=== PATIENT | female | born 1950 | race Caucasian/White ===

== ENCOUNTER 2024-12-07 13:19 | Observation (INO) | payer MEDICARE ==
[2024-12-07] MEDS ORDERED: DUONEB 0.5-3 MG/3 ml Neb IH ONE (14:23)
[2024-12-07] MEDS ORDERED: Sodium Chloride 3 ML UD NEBULES IH ONE (14:24)
[2024-12-07] MEDS ORDERED: PROVENTIL Solution 2.5 MG/0.5 ML IH ONE (14:24)
--- NOTE | 2024-12-07 14:28 | ERPHSYRPT ---
- History of Present Illness Time Seen by Provider: 12/07/24 13:22 Patient Subjective Stated Complaint: patient has complaints of cough/congestion for the past week, patient has came over from Yvonne Niño's office per [facility] Triage Nursing Assessment: patient presents to ed via wheelchair, patient complains of cough/congestion for the past week, patient has moist/productive cough, patient has green/yellow phlegm, patient has wheezing throughout all lobes, patient denies shortness of breath, patient's oxygen saturation at this time 97% on room air, patient alert and oriented x 4 Physician History: This is a 74-year-old female history of smoking denies history of COPD asthma has been coughing for 3 weeks. Cough is productive. No fever or chills. No chest pain or pressure. No anginal cloven type symptoms. Allergies/Adverse Reactions: amoxicillin [Amoxicillin] Allergy (Verified 12/07/24 13:38) Home Medications: lisinopriL [Zestril] 2.5 mg PO DAILY 12/07/24 [History] Hx Tetanus, Diphtheria Vaccination/Date Given: Yes Hx Influenza Vaccination/Date Given: No Hx Pneumococcal Vaccination/Date Given: No Travel Risk - International Travel Have you traveled outside of the country in past 3 weeks: No - Emerging Infectious Disease Are you exhibiting symptoms associated with any current EIDs: No - Review of Systems All Other Systems: Reviewed and Negative (As per HPI otherwise negative) - Past Medical History Pertinent Past Medical History: Yes Neurological History: No Pertinent History ENT History: Cataracts Cardiac History: No Pertinent History, Hypertension Respiratory History: Bronchitis, Pneumonia Endocrine Medical History: Diabetes Type II Musculoskeletal History: Arthritis GI Medical History: No Pertinent History History: No Pertinent History Psycho-Social History: Panic Disorder Female Reproductive Disorders: No Pertinent History - Past Surgical History Past Surgical History: Yes Neuro Surgical History: No Pertinent History Cardiac: No Pertinent History Respiratory: No Pertinent History Gastrointestinal: Appendectomy, Cholecystectomy Genitourinary: No Pertinent History Musculoskeletal: Other Female Surgical History: Dilation & Curettage, Other Other Surgical History: wrist. oophorectomy - Social History Smoking Status: Current every day smoker Exposure to second hand smoke: Yes Drug Use: none - Social Determinants of Health Will the patient participate in the screening: Yes Do you worry about a steady place to live?: No Do you have any problems with any of the following?: No known problems In the past 12 months,have you had to go without utilities?: No Transportation Issues: No Has anyone in your support network made you feel unsafe?: No Have you or anyone in your house had to go w/o enough food: No - Nursing Vital Signs Nursing Vital Signs: Initial Vital Signs Temperature 97.5 F 12/07/24 13:20 Pulse Rate 88 12/07/24 13:20 Respiratory Rate 20 12/07/24 13:20 Blood Pressure 110/54 12/07/24 13:20 O2 Sat by Pulse Oximetry 96 12/07/24 13:20 Pain Scale Pain Intensity 0 - Physical Exam SpO2: 97 Comments: 12/07/24 14:27 General: Well-nourished well-developed. No apparent distress. Coughing HEENT: Normocephalic atraumatic no obvious facial or neck deformity or injury. Neck: Supple. No deformity or mass noted. CV: RRR NL Perfusion. No edema Resp: No Respiratory distress. Bilateral coarse inspiratory rhonchi with scattered wheezing. Abd: ND SNT MSK: No deformity or TTP Neuro: Alert and [place] x4. No gross focal neurologic changes Psych: No SI, HI or grave disability Ordered Tests: Active Orders 24 hr Category Date Time Status CHEST 1 VIEW (PORTABLE) Stat Exams 12/07/24 14:33 Completed CBC W DIFF Stat Lab 12/07/24 14:50 Completed CMP Stat Lab 12/07/24 14:50 Completed Lactic Acid Stat Lab 12/07/24 14:31 Ordered NT PRO BNPII Stat Lab 12/07/24 14:50 Completed TROPONIN Stat Lab 12/07/24 14:50 Completed Respiratory Therapy Assessment DAILY RT 12/07/24 14:34 Completed Medication Summary Generic Name Dose Route Start Last Admin Trade Name Freq PRN Reason Stop Dose Admin Magnesium Sulfate/Dextrose 100 mls @ 100 mls/hr 12/07/24 14:30 Magnesium 1 Gm / 100 Ml D5w IV 12/07/24 16:29 Q1H TESS Ceftriaxone Sodium 1 gm in 100 mls @ 200 mls/hr 12/08/24 10:00 12/07/24 15:51 Rocephin 1 Gm / 100 Ml Nacl IV 01/07/25 09:59 Infused Q24H10 TESS Infusion Azithromycin 500 mg/ Sodium 250 mls @ 250 mls/hr 12/07/24 14:30 Chloride IV 01/06/25 14:29 ONCALLTOOR TESS Azithromycin 500 mg/ Sodium 250 mls @ 250 mls/hr 12/07/24 15:40 12/07/24 15:47 Chloride IV 12/07/24 16:39 250 ml/hr STAT STA 250 mls/hr Administration Discontinued Medications Generic Name Dose Route Start Last Admin Trade Name Cyrus PRN Reason Stop Dose Admin Albuterol Sulfate 7.5 mg 12/07/24 14:19 12/07/24 14:34 Albuterol Solution 2.5 Mg/0.5 Ml Ud Solution IH 12/07/24 14:20 7.5 mg STAT ONE Administration Albuterol Sulfate Confirm 12/07/24 14:24 Albuterol Solution 2.5 Mg/0.5 Ml Ud Solution Administered 12/07/24 14:25 Dose 7.5 mg IH .STK-MED ONE Albuterol/Ipratropium 3 ml 12/07/24 14:18 12/07/24 14:32 Ipratropium/Albuterol Sulfate 3 Ml Ampul.Neb IH 12/07/24 14:19 3 ml STAT ONE Administration Albuterol/Ipratropium Confirm 12/07/24 14:23 Ipratropium/Albuterol Sulfate 3 Ml Ampul.Neb Administered 12/07/24 14:24 Dose 3 ml IH .STK-MED ONE Azithromycin Confirm 12/07/24 15:46 Azithromycin Inj Administered 12/07/24 15:47 Dose 500 mg IV .STK-MED ONE Methylprednisolone Sodium 0 mg 12/07/24 14:28 12/07/24 15:01 Succinate 125 mg/ Sterile IV 12/07/24 14:29 125 mg Water 2 ml STAT ONE Administration Ceftriaxone Sodium Confirm 12/07/24 15:00 Rocephin 1 Gm / 100 Ml Nacl Administered 12/07/24 15:01 Dose 1 gm in 100 mls @ ud IV .STK-MED ONE Sodium Chloride Confirm 12/07/24 15:46 Sodium Chloride 0.9% 250 Ml Administered 12/07/24 15:47 Dose 250 mls @ ud IV .STK-MED ONE Methylprednisolone Sodium Succinate Confirm 12/07/24 15:00 Methylprednis Sod Succ 125 Mg/2 Ml Vial Administered 12/07/24 15:01 Dose 125 mg .ROUTE .STK-MED ONE Sodium Chloride Confirm 12/07/24 14:24 Sodium Cl For Inhalation 3 Ml Ud Nebule Administered 12/07/24 14:25 Dose 3 ml IH .STK-MED ONE Sterile Water Confirm 12/07/24 15:00 Water For Injection,Sterile 10 Ml Vial Administered 12/07/24 15:01 Dose 10 ml IJ .STK-MED ONE Lab/Rad Data: Laboratory Result Diagrams 12/07/24 14:50 12/07/24 14:50 Laboratory Results 12/07/24 12/07/24 12/07/24 Range/Units 14:50 14:50 14:50 WBC 14.9 H (3.98-10.04) x10^3/uL RBC 4.99 (3.93-5.22) x10^6/uL Hgb 12.5 (11.2-15.7) g/dL Hct 39.2 (34.1-44.9) % MCV 78.6 L (79.4-94.8) fL MCH 25.1 L (25.6-32.2) pg MCHC 31.9 L (32.2-35.5) g/dL RDW 17.2 H (11.7-14.4) % Plt Count 376 H (182-369) x10^3/uL MPV 9.4 (9.4-12.3) fL Gran % 69.6 (34.0-71.1) % Immature Gran % (Auto) 0.5 H (0.001-0.429) % Nucleat RBC Rel Count 0.0 (0.00-0.2) % Eos # (Auto) 0.51 H (0.04-0.36) x10^3/uL Immature Gran # (Auto) 0.08 H (0.001-0.031) x10^3u/L Absolute Lymphs (auto) 2.64 (1.18-3.74) x10^3/uL Absolute Monos (auto) 1.20 H (0.24-0.86) x10^3/uL Absolute Nucleated RBC 0.00 (0.00-0.012) x10^3u/L Lymphocytes % 17.7 L (19.3-51.7) % Monocytes % 8.0 (4.7-12.5) % Eosinophils % 3.4 (0.7-5.8) % Basophils % 0.8 (0.1-1.2) % Absolute Granulocytes 10.39 H (1.56-6.13) x10^3/uL Basophils # 0.12 H (0.01-0.08) x10^3/uL Sodium 138 (135-145) mmol/L Potassium 4.6 (3.5-5.1) mmol/L Chloride 101 (98-107) mmol/L Carbon Dioxide 26 (22-30) mmol/L Anion Gap 15.9 H (5-15) MEQ/L BUN 26 H (7-17) mg/dL Creatinine 1.33 H (0.52-1.04) mg/dL Estimated GFR 41.5 ML/MIN Glucose 119 H (74-106) mg/dL Calcium 9.6 (8.4-10.2) mg/dL Total Bilirubin 0.20 (0.2-1.3) mg/dL AST 24 (14-36) U/L ALT 12 (0-35) U/L Alkaline Phosphatase 88 (38-126) U/L Troponin I < 0.012 (0.000-0.033) ng/mL NT-Pro-B Natriuret Pep 207 (<300) pg/mL Serum Total Protein 6.8 (6.3-8.2) g/dL Albumin 3.8 (3.5-5.0) g/dL - Progress Progress Note: 12/07/24 16:14 Patient has evidence of pneumonia especially elevated white count. COPD exacerbation will admit to medicine service. Stable at this time. - Departure Departure Disposition: In-patient Admission Clinical Impression: Pneumonia, COPD (chronic obstructive pulmonary disease) Condition: Stable Critical Care Time: No Referrals: FELIPA PAUL [Primary Care Provider, [facility]] - Follow up/PCP as directed Instructions: Chronic Obstructive Pulmonary Disease
[2024-12-07] MEDS ORDERED: ZITHROMAX IV*** 500 MG in Sodium Chloride 0.9% 250 ML 250 ML IV SCH (14:30)
[2024-12-07] MEDS: DUONEB 0.5-3 MG/3 ml Neb IH ONE (14:32)
[2024-12-07] MEDS: PROVENTIL Solution 2.5 MG/0.5 ML IH ONE (14:34)
[2024-12-07 14:50] LABS: BASOPHIL % 0.8 % (0.1-1.2); Basophil (Absolute #) 0.12 x10^3/uL (0.01-0.08); Eosinophil (Absolute #) 0.51 x10^3/uL (0.04-0.36); Hematocrit 39.2 % (34.1-44.9); Hemoglobin 12.5 g/dL (11.2-15.7); IMMATURE GRAN # 0.08 x10^3u/L (0.001-0.031); IMMATURE GRAN % 0.5 % (0.001-0.429); Lymphocyte (Absolute #) 2.64 x10^3/uL (1.18-3.74); Mean Corpuscular Hemoglobin 25.1 pg (25.6-32.2); Mean Corpuscular Hgb Concent. 31.9 g/dL (32.2-35.5); Monocyte (Absolute #) 1.20 x10^3/uL (0.24-0.86); NUCLEATED RBC # 0.00 x10^3u/L (0.00-0.012); NUCLEATED RBC % 0.0 % (0.00-0.2); Platelet Count 376 x10^3/uL (182-369); Red Blood Count 4.99 x10^6/uL (3.93-5.22); White Blood Count 14.9 x10^3/uL (3.98-10.04)
--- NOTE | 2024-12-07 14:57 | XRAY ---
Indication: Syncope. Comparison: July 16, 2013 Portable chest again demonstrates mild bilateral lower lung hazy interstitial alveolar opacities without consolidation/large effusion. Heart not enlarged. Bony thorax intact again with mild degenerative changes.
[2024-12-07] MEDS ORDERED: ROCEPHIN 1 GM / 100 ML NaCl 1 GM/100 ML IVPB IV ONE (15:00)
[2024-12-07] MEDS ORDERED: Sterile H2O 10 ml IJ ONE (15:00)
[2024-12-07] MEDS: solu-MEDROL 125 MG, Sterile H2O 10 ml 2 ML IV ONE (15:01)
[2024-12-07] MEDS: ROCEPHIN 1 GM / 100 ML NaCl 1 GM/100 ML IVPB IV SCH (15:02)
[2024-12-07 15:12] LABS: Calcium 9.6 mg/dL (8.4-10.2); Carbon Dioxide 26.0 mmol/L (22-30); Creatinine 1 1.33 mg/dL (0.52-1.04); EST GLOMERULAR FILTRATION RATE 41.5 ML/MIN; Glucose 119.0 mg/dL (74-106); NT PRO BNPII 207.0 pg/mL (<300); Potassium 4.6 mmol/L (3.5-5.1); SGOT/AST 24.0 U/L (14-36); SGPT/ALT 12.0 U/L (0-35); Total Protein 6.8 g/dL (6.3-8.2)
[2024-12-07] MEDS ORDERED: ZITHROMAX IV IV ONE (15:46)
[2024-12-07] MEDS: ZITHROMAX IV*** 500 MG in Sodium Chloride 0.9% 250 ML 250 ML IV STA (15:47)
[2024-12-07 16:19] LABS: INFLUENZA A NEGATIVE (NEGATIVE); INFLUENZA B NEGATIVE (NEGATIVE); RESPIRATORY SYNCTIAL VIRUS NEGATIVE (NEGATIVE); SARS-CoV-2 Xpert Express NEGATIVE (NEGATIVE)
--- NOTE | 2024-12-07 16:48 | PCM.HP ---
History of Present Illness - Chief Complaint Chief Complaint: PNA; COPD Date: 12/07/24 History of Present Illness: is a 74 year old female with past medical history that includes type 2 diabetes mellitus, hypertension, cataracts, panic disorder, and bronchitis. The patient is a 74-year-old female with a significant history of daily tobacco ( 1ppd) use but denies any known history of COPD or asthma. She presents with a three-week history of productive cough, reporting green/yellow sputum and associated wheezing. She denies fever, chills, chest pain, or pressure, and no anginal-type symptoms are noted. On arrival, she was brought to the ED in a wheelchair and was alert and oriented 4. She described her cough as moist and productive with congestion, but she denied shortness of breath. Vital signs were stable with oxygen saturation at 97% on room air. On examination, she had wheezing throughout all lung josue. Chest X-ray demonstrated mild bilateral lower lung hazy interstitial and alveolar opacities without consolidation or large effusions. Given her clinical presentation, smoking history, and imaging findings, she is being admitted and started on treatment for pneumonia. - Review of Systems Constitutional: No Fever, No Chills Eyes: No Symptoms Ears, Nose, & Throat: No Symptoms Respiratory: Cough, Short Of Breath, Wheezing Cardiac: No Chest Pain, No Edema, No Syncope Abdominal/Gastrointestinal: No Abdominal Pain, No Nausea, No Vomiting, No Diarrhea Genitourinary Symptoms: No Dysuria Musculoskeletal: No Back Pain, No Neck Pain Skin: No Rash Neurological: No Dizziness, No Focal Weakness, No Sensory Changes Psychological: No Symptoms Endocrine: No Symptoms Hematologic/Lymphatic: No Symptoms Immunological/Allergic: No Symptoms Medications & Allergies Home Medications: Home Medication List Metformin HCl 500 mg [Glucophage 500 MG] 500 mg PO BID #60 tablet 07/19/13 [Rx Confirmed 12/07/24] lisinopriL [Zestril] 2.5 mg PO DAILY 12/07/24 [History Confirmed 12/07/24] Allergies/Adverse Reactions: Allergies Allergy/AdvReac Type Severity Reaction Status Date / Time amoxicillin [Amoxicillin] Allergy Verified 12/07/24 13:38 - Past Medical History Past Medical History: Yes Neurological History: No Pertinent History ENT History: Cataracts Cardiac History: No Pertinent History, Hypertension Respiratory History: Bronchitis, Pneumonia Endocrine Medical History: Diabetes Type II Musculoskelatal History: Arthritis GI Medical History: No Pertinent History History: No Pertinent History Pyscho-Social History: Panic Disorder Reproductive Disorders: No Pertinent History - Past Surgical History Past Surgical History: Yes Neuro Surgical History: No Pertinent History Cardiac History: No Pertinent History Respiratory Surgery: No Pertinent History GI Surgical History: Appendectomy, Cholecystectomy Genitourinary Surgical Hx: No Pertinent History Musculskeletal Surgical Hx: Other Female Surgical History: Dilation & Curettage, Other Other Surgical History: wrist. oophorectomy - Social History Smoking Status: Current every day smoker How long have you smoked: 46 years Exposure to second hand smoke: Yes Alcohol: None Drug Use: none - Social Determinants of Health Will the patient participate in the screening: Yes Do you worry about a steady place to live?: No Do you have any problems with any of the following?: No known problems In the past 12 months,have you had to go without utilities?: No Have you or anyone in your house had to go without enough: No Transportation Issues: No Has anyone in your support network made you feel unsafe?: No - Physical Exam Vital Signs: Vital Signs - 24 hr Temp Pulse Resp BP BP Pulse Ox 12/07/24 16:14 97 12/07/24 16:00 97 H 18 111/52 94 L 12/07/24 15:30 94 H 26 H 106/49 94 L 12/07/24 15:11 74 15 103/59 96 12/07/24 15:10 82 19 103/59 95 12/07/24 15:03 76 24 95 12/07/24 14:35 76 20 94 L 12/07/24 14:00 68 21 110/54 97 12/07/24 13:20 97.5 F 88 20 110/54 97 General Appearance: no apparent distress, alert Neurologic Exam: alert, oriented x 3, cooperative, normal mood/affect, nml cerebellar function, nml station & gait, sensation nml, No motor deficits Eye Exam: PERRL/EOMI, eyes nml inspection Ears, Nose, Throat Exam: normal ENT inspection, TMs normal, pharynx normal, moist mucous membranes Neck Exam: normal inspection, non-tender, supple, full range of motion Respiratory Exam: diminished breath sounds (BLLL), wheezing, No respiratory distress Cardiovascular Exam: regular rate/rhythm, normal heart sounds, normal peripheral pulses Gastrointestinal/Abdomen Exam: soft, normal bowel sounds, No tenderness, No mass Back Exam: normal inspection, normal range of motion, No CVA tenderness, No vertebral tenderness Extremity Exam: normal inspection, normal range of motion, pelvis stable Skin Exam: normal color, warm, dry, No rash Lymphatic Exam: No adenopathy Results - Labs Lab/Micro Results: Lab Results-Last 24 Hours 12/07/24 12/07/24 12/07/24 Range/Units 14:48 14:50 14:50 WBC 14.9 H (3.98-10.04) x10^3/uL RBC 4.99 (3.93-5.22) x10^6/uL Hgb 12.5 (11.2-15.7) g/dL Hct 39.2 (34.1-44.9) % MCV 78.6 L (79.4-94.8) fL MCH 25.1 L (25.6-32.2) pg MCHC 31.9 L (32.2-35.5) g/dL RDW 17.2 H (11.7-14.4) % Plt Count 376 H (182-369) x10^3/uL MPV 9.4 (9.4-12.3) fL Gran % 69.6 (34.0-71.1) % Immature Gran % (Auto) 0.5 H (0.001-0.429) % Nucleat RBC Rel Count 0.0 (0.00-0.2) % Eos # (Auto) 0.51 H (0.04-0.36) x10^3/uL Immature Gran # (Auto) 0.08 H (0.001-0.031) x10^3u/L Absolute Lymphs (auto) 2.64 (1.18-3.74) x10^3/uL Absolute Monos (auto) 1.20 H (0.24-0.86) x10^3/uL Absolute Nucleated RBC 0.00 (0.00-0.012) x10^3u/L Lymphocytes % 17.7 L (19.3-51.7) % Monocytes % 8.0 (4.7-12.5) % Eosinophils % 3.4 (0.7-5.8) % Basophils % 0.8 (0.1-1.2) % Absolute Granulocytes 10.39 H (1.56-6.13) x10^3/uL Basophils # 0.12 H (0.01-0.08) x10^3/uL Sodium 138 (135-145) mmol/L Potassium 4.6 (3.5-5.1) mmol/L Chloride 101 (98-107) mmol/L Carbon Dioxide 26 (22-30) mmol/L Anion Gap 15.9 H (5-15) MEQ/L BUN 26 H (7-17) mg/dL Creatinine 1.33 H (0.52-1.04) mg/dL Estimated GFR 41.5 ML/MIN Glucose 119 H (74-106) mg/dL Calcium 9.6 (8.4-10.2) mg/dL Total Bilirubin 0.20 (0.2-1.3) mg/dL AST 24 (14-36) U/L ALT 12 (0-35) U/L Alkaline Phosphatase 88 (38-126) U/L Troponin I (0.000-0.033) ng/mL NT-Pro-B Natriuret Pep 207 (<300) pg/mL Serum Total Protein 6.8 (6.3-8.2) g/dL Albumin 3.8 (3.5-5.0) g/dL Influenza Type A Ag NEGATIVE (NEGATIVE) Influenza Type B Ag NEGATIVE (NEGATIVE) RSV (PCR) NEGATIVE (NEGATIVE) SARS-CoV-2 (PCR) NEGATIVE (NEGATIVE) 12/07/24 Range/Units 14:50 WBC (3.98-10.04) x10^3/uL RBC (3.93-5.22) x10^6/uL Hgb (11.2-15.7) g/dL Hct (34.1-44.9) % MCV (79.4-94.8) fL MCH (25.6-32.2) pg MCHC (32.2-35.5) g/dL RDW (11.7-14.4) % Plt Count (182-369) x10^3/uL MPV (9.4-12.3) fL Gran % (34.0-71.1) % Immature Gran % (Auto) (0.001-0.429) % Nucleat RBC Rel Count (0.00-0.2) % Eos # (Auto) (0.04-0.36) x10^3/uL Immature Gran # (Auto) (0.001-0.031) x10^3u/L Absolute Lymphs (auto) (1.18-3.74) x10^3/uL Absolute Monos (auto) (0.24-0.86) x10^3/uL Absolute Nucleated RBC (0.00-0.012) x10^3u/L Lymphocytes % (19.3-51.7) % Monocytes % (4.7-12.5) % Eosinophils % (0.7-5.8) % Basophils % (0.1-1.2) % Absolute Granulocytes (1.56-6.13) x10^3/uL Basophils # (0.01-0.08) x10^3/uL Sodium (135-145) mmol/L Potassium (3.5-5.1) mmol/L Chloride (98-107) mmol/L Carbon Dioxide (22-30) mmol/L Anion Gap (5-15) MEQ/L BUN (7-17) mg/dL Creatinine (0.52-1.04) mg/dL Estimated GFR ML/MIN Glucose (74-106) mg/dL Calcium (8.4-10.2) mg/dL Total Bilirubin (0.2-1.3) mg/dL AST (14-36) U/L ALT (0-35) U/L Alkaline Phosphatase (38-126) U/L Troponin I < 0.012 (0.000-0.033) ng/mL NT-Pro-B Natriuret Pep (<300) pg/mL Serum Total Protein (6.3-8.2) g/dL Albumin (3.5-5.0) g/dL Influenza Type A Ag (NEGATIVE) Influenza Type B Ag (NEGATIVE) RSV (PCR) (NEGATIVE) SARS-CoV-2 (PCR) (NEGATIVE) - Radiology Impressions Radiology Exams & Impressions: Radiology Procedures Category Date Time Status CHEST 1 VIEW (PORTABLE) Stat Exams 12/07/24 14:33 Completed Assessment/Plan (1) Sepsis Current Visit: No Status: Acute Qualifiers: Sepsis type: sepsis due to unspecified organism Severe sepsis acute organ dysfunction type: acute renal failure Severe sepsis shock status: unspecified Assessment & Plan: - 2:2 pneumonia - HR > 90, RR >20, WBC > 12, Lactic acid 2.4 - 2 liter fluid bolus ordered, then NS @ 50ml/hr - Recheck LA in 6 hours - BC x2 ordered - Sputum culture ordered - IV antibiotics, steroids, duonebs - CXR reviewed - CBC, CMP reviewed (2) Pneumonia Current Visit: No Status: Acute Assessment & Plan: - CXR: Portable chest again demonstrates mild bilateral lower lung hazy interstitial alveolar opacities without consolidation/large effusion. Heart not enlarged. Bony thorax intact again with mild degenerative changes. - CBC, CMP reviewed - Started on ceftriaxone, azithromycin, steroids, duonebs in ER- continue - WBC 14.9 - Flu/COVID/RSV negative - RA 97% - Sputum culture pending - Tessalon for cough - BC x2 pending - LA elevated, + sepsis- see plan above Code(s): J18.9 - PNEUMONIA, UNSPECIFIED ORGANISM (3) Acute on chronic renal failure Current Visit: No Status: Acute Assessment & Plan: - Creat 1.33- last yr lab was 1.19 - NS @ 50ml/hr Code(s): N17.9 - ACUTE KIDNEY FAILURE, UNSPECIFIED; N18.9 - CHRONIC KIDNEY DISEASE, UNSPECIFIED (4) Type II diabetes mellitus Current Visit: No Status: Chronic Qualifiers: Diabetes mellitus snf insulin use: without snf use Diabetes mellitus complication status: without complication Qualified Code(s): E11.9 - Type 2 diabetes mellitus without complications Assessment & Plan: - Hold metformin - Start low dose s/s - Accuchecks AC/HS (5) Smoker Current Visit: No Status: Chronic Assessment & Plan: - Advised smoking cessation - Nicotine patch Code(s): F17.200 - NICOTINE DEPENDENCE, UNSPECIFIED, UNCOMPLICATED (6) HTN (hypertension) Current Visit: No Status: Chronic Assessment & Plan: - BP stable - Continue Lisinopril Code(s): I10 - ESSENTIAL (PRIMARY) HYPERTENSION (7) Obesity (BMI 30-39.9) Current Visit: No Status: Chronic Assessment & Plan: - Advised ADA diet and exercise control VTE: Heparin PPI: Protonix Code status: Full Next of KIN: Child, Rene Phelps D/C plan: 1-2 days Plan of care time > 45 minutes Code(s): E66.9 - OBESITY, UNSPECIFIED Telemedicine Encounter - Telemedicine Encounter Telemedicine Encounter: "The entirety of this encounter was performed via Telemedicine" This visit was performed using real-time audio and video connection between my location and thepatients locationwith the assistance of a surrogateat the patients location. Written or verbal consent was obtained from the patient/guardian to perform this visit usingsynchronoustelemedicine technology. Any patient questions regarding the telemedicine interaction were answered.
[2024-12-07] MEDS: Magnesium 1 Gm / 100 Ml D5W*** 100 ML IV SCH (17:25)
[2024-12-07] MEDS: Nicoderm CQ 21 MG TOP SCH (17:35)
[2024-12-07] MEDS: DUONEB 0.5-3 MG/3 ml Neb IH SCH (18:45)
[2024-12-07] MEDS: solu-MEDROL 40 MG, Sterile H2O 10 ml 1 ML IV SCH (21:35)
[2024-12-07] MEDS: Tessalon Perles 100 MG PO PRN (21:35)
[2024-12-07] MEDS: HEPARIN 5000 UNITS/0.5 ML (HIGH RISK MED) SQ SCH (21:36)
[2024-12-07] MEDS: HUMALOG SQ PRN (21:37)
[2024-12-08 05:04] LABS: Hematocrit 35.6 % (34.1-44.9); Hemoglobin 11.1 g/dL (11.2-15.7); Mean Corpuscular Hemoglobin 23.6 pg (25.6-32.2); Mean Corpuscular Hgb Concent. 31.2 g/dL (32.2-35.5); Platelet Count 397 x10^3/uL (182-369); Red Blood Count 4.70 x10^6/uL (3.93-5.22); White Blood Count 10.0 x10^3/uL (3.98-10.04)
[2024-12-08 05:32] LABS: Calcium 8.7 mg/dL (8.4-10.2); Carbon Dioxide 22 mmol/L (22-30); Creatinine 1 1.07 mg/dL (0.52-1.04); EST GLOMERULAR FILTRATION RATE 53.8 ML/MIN; Glucose 207 mg/dL (74-106); Potassium 4.1 mmol/L (3.5-5.1); SGOT/AST 21 U/L (14-36); SGPT/ALT 10 U/L (0-35); Total Protein 6.8 g/dL (6.3-8.2)
--- NOTE | 2024-12-08 09:12 | PCM.DS ---
Discharge Summary Date of Admission: 12/07/24 16:33 Date of Discharge: 12/08/24 Admitting Physician: TREY ROD MD Primary Care Provider: FELIPA PAUL Allergies Allergies amoxicillin [Amoxicillin] Allergy (Verified 12/07/24 13:38) Hospital Summary - Hospital Course Hospital Course: is a 74 year old female with past medical history that includes type 2 diabetes mellitus, hypertension, cataracts, panic disorder, and bronchitis. The patient is a 74-year-old female with a significant history of daily tobacco ( 1ppd) use but denies any known history of COPD or asthma. She presented on 12/07/24 with a three-week history of productive cough, reporting green/yellow sputum and associated wheezing. She denies fever, chills, chest pain, or pressure, and no anginal-type symptoms are noted. On arrival, she was brought to the ED in a wheelchair and was alert and oriented 4. She described her cough as moist and productive with congestion, but she denied shortness of breath. Vital signs were stable with oxygen saturation at 97% on room air. On examination, she had wheezing throughout all lung josue. Chest X-ray demonstrated mild bilateral lower lung hazy interstitial and alveolar opacities without consolidation or large effusions. Given her clinical presentation, smoking history, and imaging findings, she is being admitted and started on treatment for pneumonia. 12/08 today pt is sitting up in bed. She is RA 95%. required overnight oxygen. Overnight pulse ox for home ordered. Lung sounds are clear but she continues to have a cough. Will d/c with antibiotics, cough medication, and steroids. kidney function at baseline. WBC 10.0 today. Sputum and BC x2 pending. - Vitals & Intake/Output Vital Signs: Vital Signs Temperature 97.9 F 12/08/24 07:50 Pulse Rate 64 12/08/24 07:50 Respiratory Rate 17 12/08/24 07:50 Blood Pressure 129/62 12/08/24 07:50 O2 Sat by Pulse Oximetry 95 12/08/24 07:50 Intake & Output: Intake & Output 12/05/24 12/06/24 12/07/24 12/08/24 11:59 11:59 11:59 11:59 Intake Total 2192 Output Total 150 Balance 2042 Weight 89.5 kg - Lab Result Diagrams: 12/08/24 04:20 12/08/24 04:20 Lab Results-Last 24 Hrs: Lab Results-Last 24 Hours 12/07/24 12/07/24 12/07/24 Range/Units 14:40 14:48 14:50 WBC 14.9 H (3.98-10.04) x10^3/uL RBC 4.99 (3.93-5.22) x10^6/uL Hgb 12.5 (11.2-15.7) g/dL Hct 39.2 (34.1-44.9) % MCV 78.6 L (79.4-94.8) fL MCH 25.1 L (25.6-32.2) pg MCHC 31.9 L (32.2-35.5) g/dL RDW 17.2 H (11.7-14.4) % Plt Count 376 H (182-369) x10^3/uL MPV 9.4 (9.4-12.3) fL Gran % 69.6 (34.0-71.1) % Immature Gran % (Auto) 0.5 H (0.001-0.429) % Nucleat RBC Rel Count 0.0 (0.00-0.2) % Eos # (Auto) 0.51 H (0.04-0.36) x10^3/uL Immature Gran # (Auto) 0.08 H (0.001-0.031) x10^3u/L Absolute Lymphs (auto) 2.64 (1.18-3.74) x10^3/uL Absolute Monos (auto) 1.20 H (0.24-0.86) x10^3/uL Absolute Nucleated RBC 0.00 (0.00-0.012) x10^3u/L Lymphocytes % 17.7 L (19.3-51.7) % Monocytes % 8.0 (4.7-12.5) % Eosinophils % 3.4 (0.7-5.8) % Basophils % 0.8 (0.1-1.2) % Absolute Granulocytes 10.39 H (1.56-6.13) x10^3/uL Basophils # 0.12 H (0.01-0.08) x10^3/uL Sodium (135-145) mmol/L Potassium (3.5-5.1) mmol/L Chloride (98-107) mmol/L Carbon Dioxide (22-30) mmol/L Anion Gap (5-15) MEQ/L BUN (7-17) mg/dL Creatinine (0.52-1.04) mg/dL Estimated GFR ML/MIN Glucose (74-106) mg/dL POC Glucometer (74 to 106) mg/dL Hemoglobin A1c (4.5-6.0) % Lactic Acid 2.4 H (0.4-2.0) Calcium (8.4-10.2) mg/dL Total Bilirubin (0.2-1.3) mg/dL AST (14-36) U/L ALT (0-35) U/L Alkaline Phosphatase (38-126) U/L Troponin I (0.000-0.033) ng/mL NT-Pro-B Natriuret Pep (<300) pg/mL Serum Total Protein (6.3-8.2) g/dL Albumin (3.5-5.0) g/dL Influenza Type A Ag NEGATIVE (NEGATIVE) Influenza Type B Ag NEGATIVE (NEGATIVE) RSV (PCR) NEGATIVE (NEGATIVE) SARS-CoV-2 (PCR) NEGATIVE (NEGATIVE) 12/07/24 12/07/24 12/07/24 Range/Units 14:50 14:50 14:50 WBC (3.98-10.04) x10^3/uL RBC (3.93-5.22) x10^6/uL Hgb (11.2-15.7) g/dL Hct (34.1-44.9) % MCV (79.4-94.8) fL MCH (25.6-32.2) pg MCHC (32.2-35.5) g/dL RDW (11.7-14.4) % Plt Count (182-369) x10^3/uL MPV (9.4-12.3) fL Gran % (34.0-71.1) % Immature Gran % (Auto) (0.001-0.429) % Nucleat RBC Rel Count (0.00-0.2) % Eos # (Auto) (0.04-0.36) x10^3/uL Immature Gran # (Auto) (0.001-0.031) x10^3u/L Absolute Lymphs (auto) (1.18-3.74) x10^3/uL Absolute Monos (auto) (0.24-0.86) x10^3/uL Absolute Nucleated RBC (0.00-0.012) x10^3u/L Lymphocytes % (19.3-51.7) % Monocytes % (4.7-12.5) % Eosinophils % (0.7-5.8) % Basophils % (0.1-1.2) % Absolute Granulocytes (1.56-6.13) x10^3/uL Basophils # (0.01-0.08) x10^3/uL Sodium 138 (135-145) mmol/L Potassium 4.6 (3.5-5.1) mmol/L Chloride 101 (98-107) mmol/L Carbon Dioxide 26 (22-30) mmol/L Anion Gap 15.9 H (5-15) MEQ/L BUN 26 H (7-17) mg/dL Creatinine 1.33 H (0.52-1.04) mg/dL Estimated GFR 41.5 ML/MIN Glucose 119 H (74-106) mg/dL POC Glucometer (74 to 106) mg/dL Hemoglobin A1c 6.40 H (4.5-6.0) % Lactic Acid (0.4-2.0) Calcium 9.6 (8.4-10.2) mg/dL Total Bilirubin 0.20 (0.2-1.3) mg/dL AST 24 (14-36) U/L ALT 12 (0-35) U/L Alkaline Phosphatase 88 (38-126) U/L Troponin I < 0.012 (0.000-0.033) ng/mL NT-Pro-B Natriuret Pep 207 (<300) pg/mL Serum Total Protein 6.8 (6.3-8.2) g/dL Albumin 3.8 (3.5-5.0) g/dL Influenza Type A Ag (NEGATIVE) Influenza Type B Ag (NEGATIVE) RSV (PCR) (NEGATIVE) SARS-CoV-2 (PCR) (NEGATIVE) 12/07/24 12/07/24 12/07/24 Range/Units 16:56 21:15 21:23 WBC (3.98-10.04) x10^3/uL RBC (3.93-5.22) x10^6/uL Hgb (11.2-15.7) g/dL Hct (34.1-44.9) % MCV (79.4-94.8) fL MCH (25.6-32.2) pg MCHC (32.2-35.5) g/dL RDW (11.7-14.4) % Plt Count (182-369) x10^3/uL MPV (9.4-12.3) fL Gran % (34.0-71.1) % Immature Gran % (Auto) (0.001-0.429) % Nucleat RBC Rel Count (0.00-0.2) % Eos # (Auto) (0.04-0.36) x10^3/uL Immature Gran # (Auto) (0.001-0.031) x10^3u/L Absolute Lymphs (auto) (1.18-3.74) x10^3/uL Absolute Monos (auto) (0.24-0.86) x10^3/uL Absolute Nucleated RBC (0.00-0.012) x10^3u/L Lymphocytes % (19.3-51.7) % Monocytes % (4.7-12.5) % Eosinophils % (0.7-5.8) % Basophils % (0.1-1.2) % Absolute Granulocytes (1.56-6.13) x10^3/uL Basophils # (0.01-0.08) x10^3/uL Sodium (135-145) mmol/L Potassium (3.5-5.1) mmol/L Chloride (98-107) mmol/L Carbon Dioxide (22-30) mmol/L Anion Gap (5-15) MEQ/L BUN (7-17) mg/dL Creatinine (0.52-1.04) mg/dL Estimated GFR ML/MIN Glucose (74-106) mg/dL POC Glucometer 467 H 477 H (74 to 106) mg/dL Hemoglobin A1c (4.5-6.0) % Lactic Acid 1.0 (0.4-2.0) Calcium (8.4-10.2) mg/dL Total Bilirubin (0.2-1.3) mg/dL AST (14-36) U/L ALT (0-35) U/L Alkaline Phosphatase (38-126) U/L Troponin I (0.000-0.033) ng/mL NT-Pro-B Natriuret Pep (<300) pg/mL Serum Total Protein (6.3-8.2) g/dL Albumin (3.5-5.0) g/dL Influenza Type A Ag (NEGATIVE) Influenza Type B Ag (NEGATIVE) RSV (PCR) (NEGATIVE) SARS-CoV-2 (PCR) (NEGATIVE) 12/07/24 12/08/24 12/08/24 Range/Units 22:21 00:19 04:17 WBC (3.98-10.04) x10^3/uL RBC (3.93-5.22) x10^6/uL Hgb (11.2-15.7) g/dL Hct (34.1-44.9) % MCV (79.4-94.8) fL MCH (25.6-32.2) pg MCHC (32.2-35.5) g/dL RDW (11.7-14.4) % Plt Count (182-369) x10^3/uL MPV (9.4-12.3) fL Gran % (34.0-71.1) % Immature Gran % (Auto) (0.001-0.429) % Nucleat RBC Rel Count (0.00-0.2) % Eos # (Auto) (0.04-0.36) x10^3/uL Immature Gran # (Auto) (0.001-0.031) x10^3u/L Absolute Lymphs (auto) (1.18-3.74) x10^3/uL Absolute Monos (auto) (0.24-0.86) x10^3/uL Absolute Nucleated RBC (0.00-0.012) x10^3u/L Lymphocytes % (19.3-51.7) % Monocytes % (4.7-12.5) % Eosinophils % (0.7-5.8) % Basophils % (0.1-1.2) % Absolute Granulocytes (1.56-6.13) x10^3/uL Basophils # (0.01-0.08) x10^3/uL Sodium (135-145) mmol/L Potassium (3.5-5.1) mmol/L Chloride (98-107) mmol/L Carbon Dioxide (22-30) mmol/L Anion Gap (5-15) MEQ/L BUN (7-17) mg/dL Creatinine (0.52-1.04) mg/dL Estimated GFR ML/MIN Glucose (74-106) mg/dL POC Glucometer 449 H 280 H 203 H (74 to 106) mg/dL Hemoglobin A1c (4.5-6.0) % Lactic Acid (0.4-2.0) Calcium (8.4-10.2) mg/dL Total Bilirubin (0.2-1.3) mg/dL AST (14-36) U/L ALT (0-35) U/L Alkaline Phosphatase (38-126) U/L Troponin I (0.000-0.033) ng/mL NT-Pro-B Natriuret Pep (<300) pg/mL Serum Total Protein (6.3-8.2) g/dL Albumin (3.5-5.0) g/dL Influenza Type A Ag (NEGATIVE) Influenza Type B Ag (NEGATIVE) RSV (PCR) (NEGATIVE) SARS-CoV-2 (PCR) (NEGATIVE) 12/08/24 12/08/24 12/08/24 Range/Units 04:20 04:20 07:13 WBC 10.0 (3.98-10.04) x10^3/uL RBC 4.70 (3.93-5.22) x10^6/uL Hgb 11.1 L (11.2-15.7) g/dL Hct 35.6 (34.1-44.9) % MCV 75.7 L (79.4-94.8) fL MCH 23.6 L (25.6-32.2) pg MCHC 31.2 L (32.2-35.5) g/dL RDW 17.2 H (11.7-14.4) % Plt Count 397 H (182-369) x10^3/uL MPV 9.2 L (9.4-12.3) fL Gran % (34.0-71.1) % Immature Gran % (Auto) (0.001-0.429) % Nucleat RBC Rel Count (0.00-0.2) % Eos # (Auto) (0.04-0.36) x10^3/uL Immature Gran # (Auto) (0.001-0.031) x10^3u/L Absolute Lymphs (auto) (1.18-3.74) x10^3/uL Absolute Monos (auto) (0.24-0.86) x10^3/uL Absolute Nucleated RBC (0.00-0.012) x10^3u/L Lymphocytes % (19.3-51.7) % Monocytes % (4.7-12.5) % Eosinophils % (0.7-5.8) % Basophils % (0.1-1.2) % Absolute Granulocytes (1.56-6.13) x10^3/uL Basophils # (0.01-0.08) x10^3/uL Sodium 135 (135-145) mmol/L Potassium 4.1 (3.5-5.1) mmol/L Chloride 102 (98-107) mmol/L Carbon Dioxide 22 (22-30) mmol/L Anion Gap 14.5 (5-15) MEQ/L BUN 27 H (7-17) mg/dL Creatinine 1.07 H (0.52-1.04) mg/dL Estimated GFR 53.8 ML/MIN Glucose 207 H (74-106) mg/dL POC Glucometer 212 H (74 to 106) mg/dL Hemoglobin A1c (4.5-6.0) % Lactic Acid (0.4-2.0) Calcium 8.7 (8.4-10.2) mg/dL Total Bilirubin < 0.10 L (0.2-1.3) mg/dL AST 21 (14-36) U/L ALT 10 (0-35) U/L Alkaline Phosphatase 87 (38-126) U/L Troponin I (0.000-0.033) ng/mL NT-Pro-B Natriuret Pep (<300) pg/mL Serum Total Protein 6.8 (6.3-8.2) g/dL Albumin 3.6 (3.5-5.0) g/dL Influenza Type A Ag (NEGATIVE) Influenza Type B Ag (NEGATIVE) RSV (PCR) (NEGATIVE) SARS-CoV-2 (PCR) (NEGATIVE) Micro Results-Entire Visit: Accuchecks Date 12/08/24 Date 12/08/24 Date 12/08/24 Date 12/07/24 Date 12/07/24 Date 12/07/24 Time 07:50 Time 04:17 Time 00:19 Time 22:21 Time 21:23 Time 21:15 - Radiology Exams Ordered Rad Exams-Entire Visit: Radiology Procedures Category Date Time Status CHEST 1 VIEW (PORTABLE) Stat Exams 12/07/24 14:33 Completed - Procedures and Test Procedures and Tests throughout Hospitalization: Therapy Orders & Screens 12/07/24 14:34 Respiratory Therapy Assessment DAILY Comment: 12/07/24 16:54 Respiratory Therapy Assessment DAILY Comment: Diagnosis: PNA; COPD 12/07/24 17:07 Smoking Cessation Education ONCE Comment: Diagnosis: PNA; COPD Smoking Status: Current every day smoker How long have you smoked: 46 years Have you smoked in the past 12 months: Yes Approximately how many cigarettes per day: 10 Do you dip or chew tobacco: No 12/07/24 19:00 Oxygen Nasal Cannula 2 lpm Comment: Diagnosis: PNA; COPD Discharge Exam General Appearance: no apparent distress, alert Neurologic Exam: alert, oriented x 3, cooperative, normal mood/affect, nml cerebellar function, sensation nml, No motor deficits Eye Exam: PERRL, EOMI, eyes nml inspection Ears, Nose, Throat Exam: normal ENT inspection, pharynx normal, moist mucous membranes Neck Exam: normal inspection, non-tender, supple, full range of motion Respiratory Exam: normal breath sounds, lungs clear, wheezing (RUL- occasionally), No respiratory distress Cardiovascular Exam: regular rate/rhythm, normal heart sounds Gastrointestinal/Abdomen Exam: soft, No tenderness, No mass Pelvic Exam: deferred Rectal Exam: deferred Back Exam: normal inspection, normal range of motion, No CVA tenderness, No vertebral tenderness Extremity Exam: normal inspection, normal range of motion Skin Exam: normal color, warm, dry Final Diagnosis/Problem List - Final Discharge Diagnosis/Problem (1) Sepsis Current Visit: No Status: Acute (2) Pneumonia Current Visit: No Status: Acute Code(s): J18.9 - PNEUMONIA, UNSPECIFIED ORGANISM (3) Acute on chronic renal failure Current Visit: No Status: Acute Code(s): N17.9 - ACUTE KIDNEY FAILURE, UNSPECIFIED; N18.9 - CHRONIC KIDNEY DISEASE, UNSPECIFIED (4) Type II diabetes mellitus Current Visit: No Status: Chronic (5) Smoker Current Visit: No Status: Chronic Code(s): F17.200 - NICOTINE DEPENDENCE, UNSPECIFIED, UNCOMPLICATED (6) HTN (hypertension) Current Visit: No Status: Chronic Code(s): I10 - ESSENTIAL (PRIMARY) HYPERTENSION (7) Obesity (BMI 30-39.9) Current Visit: No Status: Chronic Assessment & Plan: (1) Sepsis Current Visit: No Status: Acute Qualifiers: Sepsis type: sepsis due to unspecified organism Severe sepsis acute organ dysfunction type: acute renal failure Severe sepsis shock status: unspecified Assessment & Plan: - 2:2 pneumonia - HR > 90, RR >20, WBC > 12, Lactic acid 2.4 @ 1440 - Repeat LA 1.0 at 1656- IVF boluses not required - NS @ 50ml/hr - BC x2 ordered - Sputum culture ordered - IV antibiotics, steroids, duonebs - CXR reviewed - CBC, CMP reviewed 12/08 - CBC, CMP reviewed - Will continue to follow BC x2 and Sputum culture OP (2) Pneumonia Current Visit: No Status: Acute Assessment & Plan: - CXR: Portable chest again demonstrates mild bilateral lower lung hazy interstitial alveolar opacities without consolidation/large effusion. Heart not enlarged. Bony thorax intact again with mild degenerative changes. - CBC, CMP reviewed - Started on ceftriaxone, azithromycin, steroids, duonebs in ER- continue - WBC 14.9 - Flu/COVID/RSV negative - RA 97% - Sputum culture pending - Tessalon for cough - BC x2 pending - LA elevated, + sepsis- see plan above 12/08 - WBC 10.0 - RT eval for home O2 - Overnight pulse ox at home as pt required O2 last night - CBC, CMP reviewed - Will continue to follow BC x2 and Sputum culture OP - Will d/c with antibiotics, steroids, tessalon, and nebs. - CM to order neb machine Code(s): J18.9 - PNEUMONIA, UNSPECIFIED ORGANISM (3) Acute on chronic renal failure Current Visit: No Status: Acute Assessment & Plan: - Creat 1.33- last yr lab was 1.19 - NS @ 50ml/hr 12/08 - Creat 1.07- at baseline Code(s): N17.9 - ACUTE KIDNEY FAILURE, UNSPECIFIED; N18.9 - CHRONIC KIDNEY DISEASE, UNSPECIFIED (4) Type II diabetes mellitus Current Visit: No Status: Chronic Qualifiers: Diabetes mellitus ad terminal makeup operator insulin use: without shelter use Diabetes mellitus complication status: without complication Qualified Code(s): E11.9 - Type 2 diabetes mellitus without complications Assessment & Plan: - Hold metformin - Start low dose s/s - Accuchecks AC/HS - A1C 6.40- controlled (5) Smoker Current Visit: No Status: Chronic Assessment & Plan: - Advised smoking cessation - Nicotine patch Code(s): F17.200 - NICOTINE DEPENDENCE, UNSPECIFIED, UNCOMPLICATED (6) HTN (hypertension) Current Visit: No Status: Chronic Assessment & Plan: - BP stable - Continue Lisinopril Code(s): I10 - ESSENTIAL (PRIMARY) HYPERTENSION (7) Obesity (BMI 30-39.9) Current Visit: No Status: Chronic Assessment & Plan: - Advised ADA diet and exercise control Code(s): E66.9 - OBESITY, UNSPECIFIED (8) Thrombocytosis Current Visit: Yes Status: Acute Assessment & Plan: - PLT 397- f/u OP with PCP - 2:2 pneumonia D/C plan of care time: > 40 minutes D/C meds: prednisone, tessalon, levaquin, duonebs, albuterol inhaler - Discharge Discharge Date: 12/08/24 Disposition: Home, Self-Care Condition: Stable Prescriptions: Continue Metformin HCl 500 mg [Glucophage 500 MG] 500 mg PO BID #60 tablet lisinopriL [Zestril] 2.5 mg PO DAILY Outpatient Orders: Overnight Pulse Ox Time Frame: 1 Day, Facility: [facility], Location: RESPIRATORY THERAPY Instructions: Pneumonia in adults, Quitting smoking - ED discharge instructions Follow up with: FELIPA PAUL [Primary Care Provider, [facility]]
[2024-12-08] MEDS: Protonix 20MG Tablet PO SCH (10:18)
[2024-12-08] MEDS: Zestril 5 MG PO SCH (10:19)
[2024-12-08] MEDS: ROCEPHIN 1 GM / 100 ML NaCl 1 GM/100 ML IVPB IV SCH (10:20)
[2024-12-08] MEDS: ZITHROMAX IV*** 500 MG in Sodium Chloride 0.9% 250 ML 250 ML IV SCH (11:09)
[2024-12-08] MEDS: Mucinex 600MG ER Tabs PO SCH (11:09)
[2024-12-08] MEDS: HYDROCODONE-CHLORPHEN ER SUSP PO PRN (11:41)
--- NOTE | 2024-12-08 15:06 | XRAY ---
Indication: Crackles. Comparison: 1 day earlier. Portable chest demonstrates slight worsening mild bibasilar interstitial alveolar opacities with new tiny right effusion. Remaining heart and upper lungs unremarkable.
--- NOTE | 2024-12-08 15:50 | PCM.NOTE ---
Date and Time: 12/08/24 1548 Subjective Assessment: is a 74 year old female with past medical history that includes type 2 diabetes mellitus, hypertension, cataracts, panic disorder, and bronchitis. The patient is a 74-year-old female with a significant history of daily tobacco ( 1ppd) use but denies any known history of COPD or asthma. She presented on 12/07/24 with a three-week history of productive cough, reporting green/yellow sputum and associated wheezing. She denies fever, chills, chest pain, or pressure, and no anginal-type symptoms are noted. On arrival, she was brought to the ED in a wheelchair and was alert and oriented 4. She described her cough as moist and productive with congestion, but she denied shortness of breath. Vital signs were stable with oxygen saturation at 97% on room air. On examination, she had wheezing throughout all lung josue. Chest X-ray demonstrated mild bilateral lower lung hazy interstitial and alveolar opacities without consolidation or large effusions. Given her clinical presentation, smoking history, and imaging findings, she is being admitted and started on treatment for pneumonia. 12/08 tod ay pt is sitting up in bed. She is RA 95%. required overnight oxygen. She qualified for home RT per RT. Lung sounds are clear but she continues to have a cough. WBC 10.0 today. Sputum and BC x2 pending. Pt was doing well this AM and wanted to d/c home. She developed bronchospasms several times today. Tessalon changed to tussinex and Advair added since she is a smoker. Pt wanted to stay another night. Repeat CXR ordered for further eval of sxs. - Review of Systems Constitutional: No Fever, No Chills Eyes: No Symptoms Ears, Nose, & Throat: No Symptoms Respiratory: Cough, Wheezing, No Short Of Breath Cardiac: No Chest Pain, No Edema, No Syncope Abdominal/Gastrointestinal: No Abdominal Pain, No Nausea, No Vomiting, No Diarrhea Genitourinary Symptoms: No Dysuria Musculoskeletal: No Back Pain, No Neck Pain Skin: No Rash Neurological: No Dizziness, No Focal Weakness, No Sensory Changes Psychological: No Symptoms Endocrine: No Symptoms Hematologic/Lymphatic: No Symptoms Immunological/Allergic: No Symptoms Objective Exam General Appearance: no apparent distress, alert, obese Neurologic Exam: alert, oriented x 3, cooperative, normal mood/affect, nml cerebellar function, sensation nml, No motor deficits Skin Exam: normal color, warm, dry Eye Exam: PERRL, EOMI, eyes nml inspection Ears, Nose, Throat Exam: normal ENT inspection, pharynx normal, moist mucous membranes Neck Exam: normal inspection, non-tender, supple, full range of motion Respiratory Exam: wheezing, No respiratory distress Cardiovascular Exam: regular rate/rhythm, normal heart sounds Gastrointestinal/Abdomen Exam: soft, No tenderness, No mass Extremity Exam: normal inspection, normal range of motion Back Exam: normal inspection, normal range of motion, No CVA tenderness, No vertebral tenderness Pelvic Exam: deferred Rectal Exam: deferred Objective Data Vital Signs: Vital Signs - 24 hr Temp Pulse Resp BP BP Pulse Ox 12/08/24 14:43 72 18 96 12/08/24 12:00 97.8 F 96 H 18 115/61 91 L 12/08/24 09:12 70 18 96 12/08/24 07:50 97.9 F 64 17 129/62 95 12/08/24 07:17 62 16 95 12/08/24 04:00 98.5 F 75 18 131/62 95 12/08/24 00:00 98.0 F 64 20 106/55 94 L 12/07/24 20:00 98.6 F 99 H 21 99/51 95 12/07/24 18:45 98 H 20 89 L 12/07/24 17:11 76 16 95 12/07/24 16:39 98.3 F 82 22 112/53 96 12/07/24 16:14 97 12/07/24 16:00 97 H 18 111/52 94 L Pain Assessment - Last Documented Pain Intensity 0 Intake and Output: Intake & Output 12/06/24 12/07/24 12/08/24 12/09/24 11:59 11:59 11:59 11:59 Intake Total 2192 240 Output Total 150 Balance 2042 240 Weight 89.5 kg Lab Results: Lab Results-Last 24 Hours 12/07/24 12/07/24 12/07/24 Range/Units 14:40 14:48 14:50 WBC (3.98-10.04) x10^3/uL RBC (3.93-5.22) x10^6/uL Hgb (11.2-15.7) g/dL Hct (34.1-44.9) % MCV (79.4-94.8) fL MCH (25.6-32.2) pg MCHC (32.2-35.5) g/dL RDW (11.7-14.4) % Plt Count (182-369) x10^3/uL MPV (9.4-12.3) fL Sodium (135-145) mmol/L Potassium (3.5-5.1) mmol/L Chloride (98-107) mmol/L Carbon Dioxide (22-30) mmol/L Anion Gap (5-15) MEQ/L BUN (7-17) mg/dL Creatinine (0.52-1.04) mg/dL Estimated GFR ML/MIN Glucose (74-106) mg/dL POC Glucometer (74 to 106) mg/dL Hemoglobin A1c 6.40 H (4.5-6.0) % Lactic Acid 2.4 H (0.4-2.0) Calcium (8.4-10.2) mg/dL Total Bilirubin (0.2-1.3) mg/dL AST (14-36) U/L ALT (0-35) U/L Alkaline Phosphatase (38-126) U/L Serum Total Protein (6.3-8.2) g/dL Albumin (3.5-5.0) g/dL Influenza Type A Ag NEGATIVE (NEGATIVE) Influenza Type B Ag NEGATIVE (NEGATIVE) RSV (PCR) NEGATIVE (NEGATIVE) SARS-CoV-2 (PCR) NEGATIVE (NEGATIVE) 12/07/24 12/07/24 12/07/24 Range/Units 16:56 21:15 21:23 WBC (3.98-10.04) x10^3/uL RBC (3.93-5.22) x10^6/uL Hgb (11.2-15.7) g/dL Hct (34.1-44.9) % MCV (79.4-94.8) fL MCH (25.6-32.2) pg MCHC (32.2-35.5) g/dL RDW (11.7-14.4) % Plt Count (182-369) x10^3/uL MPV (9.4-12.3) fL Sodium (135-145) mmol/L Potassium (3.5-5.1) mmol/L Chloride (98-107) mmol/L Carbon Dioxide (22-30) mmol/L Anion Gap (5-15) MEQ/L BUN (7-17) mg/dL Creatinine (0.52-1.04) mg/dL Estimated GFR ML/MIN Glucose (74-106) mg/dL POC Glucometer 467 H 477 H (74 to 106) mg/dL Hemoglobin A1c (4.5-6.0) % Lactic Acid 1.0 (0.4-2.0) Calcium (8.4-10.2) mg/dL Total Bilirubin (0.2-1.3) mg/dL AST (14-36) U/L ALT (0-35) U/L Alkaline Phosphatase (38-126) U/L Serum Total Protein (6.3-8.2) g/dL Albumin (3.5-5.0) g/dL Influenza Type A Ag (NEGATIVE) Influenza Type B Ag (NEGATIVE) RSV (PCR) (NEGATIVE) SARS-CoV-2 (PCR) (NEGATIVE) 12/07/24 12/08/24 12/08/24 Range/Units 22:21 00:19 04:17 WBC (3.98-10.04) x10^3/uL RBC (3.93-5.22) x10^6/uL Hgb (11.2-15.7) g/dL Hct (34.1-44.9) % MCV (79.4-94.8) fL MCH (25.6-32.2) pg MCHC (32.2-35.5) g/dL RDW (11.7-14.4) % Plt Count (182-369) x10^3/uL MPV (9.4-12.3) fL Sodium (135-145) mmol/L Potassium (3.5-5.1) mmol/L Chloride (98-107) mmol/L Carbon Dioxide (22-30) mmol/L Anion Gap (5-15) MEQ/L BUN (7-17) mg/dL Creatinine (0.52-1.04) mg/dL Estimated GFR ML/MIN Glucose (74-106) mg/dL POC Glucometer 449 H 280 H 203 H (74 to 106) mg/dL Hemoglobin A1c (4.5-6.0) % Lactic Acid (0.4-2.0) Calcium (8.4-10.2) mg/dL Total Bilirubin (0.2-1.3) mg/dL AST (14-36) U/L ALT (0-35) U/L Alkaline Phosphatase (38-126) U/L Serum Total Protein (6.3-8.2) g/dL Albumin (3.5-5.0) g/dL Influenza Type A Ag (NEGATIVE) Influenza Type B Ag (NEGATIVE) RSV (PCR) (NEGATIVE) SARS-CoV-2 (PCR) (NEGATIVE) 12/08/24 12/08/24 12/08/24 Range/Units 04:20 04:20 07:13 WBC 10.0 (3.98-10.04) x10^3/uL RBC 4.70 (3.93-5.22) x10^6/uL Hgb 11.1 L (11.2-15.7) g/dL Hct 35.6 (34.1-44.9) % MCV 75.7 L (79.4-94.8) fL MCH 23.6 L (25.6-32.2) pg MCHC 31.2 L (32.2-35.5) g/dL RDW 17.2 H (11.7-14.4) % Plt Count 397 H (182-369) x10^3/uL MPV 9.2 L (9.4-12.3) fL Sodium 135 (135-145) mmol/L Potassium 4.1 (3.5-5.1) mmol/L Chloride 102 (98-107) mmol/L Carbon Dioxide 22 (22-30) mmol/L Anion Gap 14.5 (5-15) MEQ/L BUN 27 H (7-17) mg/dL Creatinine 1.07 H (0.52-1.04) mg/dL Estimated GFR 53.8 ML/MIN Glucose 207 H (74-106) mg/dL POC Glucometer 212 H (74 to 106) mg/dL Hemoglobin A1c (4.5-6.0) % Lactic Acid (0.4-2.0) Calcium 8.7 (8.4-10.2) mg/dL Total Bilirubin < 0.10 L (0.2-1.3) mg/dL AST 21 (14-36) U/L ALT 10 (0-35) U/L Alkaline Phosphatase 87 (38-126) U/L Serum Total Protein 6.8 (6.3-8.2) g/dL Albumin 3.6 (3.5-5.0) g/dL Influenza Type A Ag (NEGATIVE) Influenza Type B Ag (NEGATIVE) RSV (PCR) (NEGATIVE) SARS-CoV-2 (PCR) (NEGATIVE) 12/08/24 Range/Units 12:10 WBC (3.98-10.04) x10^3/uL RBC (3.93-5.22) x10^6/uL Hgb (11.2-15.7) g/dL Hct (34.1-44.9) % MCV (79.4-94.8) fL MCH (25.6-32.2) pg MCHC (32.2-35.5) g/dL RDW (11.7-14.4) % Plt Count (182-369) x10^3/uL MPV (9.4-12.3) fL Sodium (135-145) mmol/L Potassium (3.5-5.1) mmol/L Chloride (98-107) mmol/L Carbon Dioxide (22-30) mmol/L Anion Gap (5-15) MEQ/L BUN (7-17) mg/dL Creatinine (0.52-1.04) mg/dL Estimated GFR ML/MIN Glucose (74-106) mg/dL POC Glucometer 256 H (74 to 106) mg/dL Hemoglobin A1c (4.5-6.0) % Lactic Acid (0.4-2.0) Calcium (8.4-10.2) mg/dL Total Bilirubin (0.2-1.3) mg/dL AST (14-36) U/L ALT (0-35) U/L Alkaline Phosphatase (38-126) U/L Serum Total Protein (6.3-8.2) g/dL Albumin (3.5-5.0) g/dL Influenza Type A Ag (NEGATIVE) Influenza Type B Ag (NEGATIVE) RSV (PCR) (NEGATIVE) SARS-CoV-2 (PCR) (NEGATIVE) Radiology Exams: Radiology Procedures Category Date Time Status CHEST 1 VIEW (PORTABLE) Stat Exams 12/07/24 14:33 Completed CHEST 1 VIEW (PORTABLE) Urgent Exams 12/08/24 14:42 Completed Medications: Medications Generic Name Dose Route Start Last Admin Trade Name Freq PRN Reason Stop Dose Admin Albuterol/Ipratropium 3 ml 12/07/24 19:00 12/08/24 14:40 Ipratropium/Albuterol Sulfate 3 Ml Ampul.Neb IH 01/06/25 18:59 3 ml QIDRT TESS Administration Chlorphenir/Hydrocodone Polistirex 5 ml 12/08/24 11:29 12/08/24 11:41 Hydrocodone/Chlorphen P-Stirex 1 Ml Zenaida.Er.12h PO 01/07/25 11:28 5 ml [id number] PRN Administration COUGH Methylprednisolone Sodium 0 mg 12/07/24 22:00 12/08/24 10:22 Succinate 40 mg/ Sterile Water IV 01/06/25 21:59 40 mg 1 ml Q12HT TESS Administration Guaifenesin 600 mg 12/08/24 11:00 12/08/24 11:09 Guaifenesin 600 Mg Tablet Er PO 01/07/25 10:59 600 mg BID TESS Administration Heparin Sodium (Beef Lung) 5,000 unit 12/07/24 22:00 12/08/24 10:22 Heparin 5000 Units/0.5 Ml 5,000 Unit/0.5 Ml Syr SQ 01/06/25 21:59 5,000 unit BID TESS Administration Ceftriaxone Sodium 1 gm in 100 mls @ 200 mls/hr 12/08/24 10:00 12/08/24 10:20 Rocephin 1 Gm / 100 Ml Nacl IV 01/07/25 09:59 200 mls/hr Q24H10 TESS Administration Azithromycin 500 mg/ Sodium 250 mls @ 250 mls/hr 12/08/24 10:00 12/08/24 11:09 Chloride IV 01/07/25 09:59 250 mls/hr DAILY TESS Administration Insulin Human Lispro 0 unit 12/07/24 16:45 12/08/24 10:16 Insulin Lispro 1 Unit SQ 01/06/25 16:44 2 unit UD PRN Administration HYPERGLYCEMIA Lisinopril 2.5 mg 12/08/24 10:00 12/08/24 10:19 Lisinopril 5 Mg Tablet PO 01/07/25 09:59 2.5 mg DAILY TESS Administration Nicotine 21 mg 12/07/24 17:30 12/08/24 10:21 Nicotine 21 Mg/Patch Patch TOP 01/06/25 17:29 21 mg Q24H10 TESS Administration Pantoprazole Sodium 20 mg 12/08/24 10:00 12/08/24 10:18 Pantoprazole 20 Mg Tab PO 01/07/25 09:59 20 mg DAILY TESS Administration Fluticasone/Salmeterol 2 puff 12/08/24 19:00 Fluticasone/Salmeterol 115/21 60 Puff Aer.W.Adap IH 01/07/25 18:59 BIDRT TESS Discontinued Medications Generic Name Dose Route Start Last Admin Trade Name Freq PRN Reason Stop Dose Admin Albuterol Sulfate 7.5 mg 12/07/24 14:19 12/07/24 14:34 Albuterol Solution 2.5 Mg/0.5 Ml Ud Solution IH 12/07/24 14:20 7.5 mg STAT ONE Administration Albuterol Sulfate Confirm 12/07/24 14:24 Albuterol Solution 2.5 Mg/0.5 Ml Ud Solution Administered 12/07/24 14:25 Dose 7.5 mg IH .STK-MED ONE Albuterol/Ipratropium 3 ml 12/07/24 14:18 12/07/24 14:32 Ipratropium/Albuterol Sulfate 3 Ml Ampul.Neb IH 12/07/24 14:19 3 ml STAT ONE Administration Albuterol/Ipratropium Confirm 12/07/24 14:23 Ipratropium/Albuterol Sulfate 3 Ml Ampul.Neb Administered 12/07/24 14:24 Dose 3 ml IH .STK-MED ONE Azithromycin Confirm 12/07/24 15:46 Azithromycin Inj Administered 12/07/24 15:47 Dose 500 mg IV .STK-MED ONE Benzonatate 100 mg 12/07/24 17:21 12/08/24 10:19 Benzonatate 100 Mg Capsule PO 01/06/25 17:20 100 mg TID PRN PRN Administration COUGH Methylprednisolone Sodium 0 mg 12/07/24 14:28 12/07/24 15:01 Succinate 125 mg/ Sterile IV 12/07/24 14:29 125 mg Water 2 ml STAT ONE Administration Magnesium Sulfate/Dextrose 100 mls @ 100 mls/hr 12/07/24 14:30 12/07/24 18:14 Magnesium 1 Gm / 100 Ml D5w IV 12/07/24 16:29 100 mls/hr Q1H TESS Administration Ceftriaxone Sodium 1 gm in 100 mls @ 200 mls/hr 12/08/24 10:00 12/07/24 15:51 Rocephin 1 Gm / 100 Ml Nacl IV 01/07/25 09:59 Infused Q24H10 TESS Infusion Ceftriaxone Sodium Confirm 12/07/24 15:00 Rocephin 1 Gm / 100 Ml Nacl Administered 12/07/24 15:01 Dose 1 gm in 100 mls @ ud IV .STK-MED ONE Azithromycin 500 mg/ Sodium 250 mls @ 250 mls/hr 12/07/24 15:40 12/07/24 15:47 Chloride IV 12/07/24 16:39 250 ml/hr STAT STA 250 mls/hr Administration Sodium Chloride Confirm 12/07/24 15:46 Sodium Chloride 0.9% 250 Ml Administered 12/07/24 15:47 Dose 250 mls @ ud IV .STK-MED ONE Sodium Chloride 1,000 mls @ 50 mls/hr 12/07/24 17:00 12/07/24 17:37 Sodium Chloride 0.9% 1000 Ml IV 01/06/25 16:59 50 mls/hr .Q20H TESS Administration Sodium Chloride 1,000 mls @ 999 mls/hr 12/07/24 17:01 12/07/24 20:02 Sodium Chloride 0.9% 1000 Ml IV 12/07/24 18:01 Not Given .Q1H1M STA Sodium Chloride 1,000 mls @ 999 mls/hr 12/07/24 17:02 12/07/24 20:02 Sodium Chloride 0.9% 1000 Ml IV 12/07/24 18:02 Not Given .Q1H1M STA Methylprednisolone Sodium Succinate Confirm 12/07/24 15:00 Methylprednis Sod Succ 125 Mg/2 Ml Vial Administered 12/07/24 15:01 Dose 125 mg .ROUTE .STK-MED ONE Sodium Chloride Confirm 12/07/24 14:24 Sodium Cl For Inhalation 3 Ml Ud Nebule Administered 12/07/24 14:25 Dose 3 ml IH .STK-MED ONE Sterile Water Confirm 12/07/24 15:00 Water For Injection,Sterile 10 Ml Vial Administered 12/07/24 15:01 Dose 10 ml IJ .STK-MED ONE Multi-Disciplinary Progress Notes: Multi-Disciplinary Progress Notes 12/08/24 12:50 (created 12/08/24 14:58) Case Management Note by Alyssa Barajas BRITTNEY KELLEY, PICKED UP PATIENTS MEDS AND DELIVERED TO HER ROOM IN PREP FOR HER DC HOME. Initialized on 12/08/24 14:58 - END OF NOTE 12/08/24 11:38 Case Management Note by Anupama Holguin PATIENT NEEDING OXYGEN AND NEBULIZER MACHINE. S/W PATIENT REGARDING DME PROVIDERS. SHE WOULD LIKE TO USE [facility]. ORDERS SUBMITTED TO [facility] FOR NEB MACHINE AND 2LNC 21/10. SHE WILL NEED SENT HOME WITH [facility] PORTABLE FROM [facility], THEN CALL [facility] WHEN SHE LEAVES [facility] TO [place] FOR DELIVERY OF HOME CONCENTRATOR. PRIMARY RN NOTIFIED. DELIVERY INSTRUCTIONS PLACED IN DC INSTRUCTIONS. PRIMARY RN GIVEN PULSE OX TO SEND HOME WITH PATIENT AT TIME OF DC Initialized on 12/08/24 11:38 - END OF NOTE 12/07/24 19:09 Respiratory Note by Isamar Tucker Patient is having episode of coughing and is complaining of SOB. Neb tx given and pt placed on 2L nasal cannula as her SpO2 just after coughing spell was 89%- 90%. Initialized on 12/07/24 19:09 - END OF NOTE Assessment/Plan (1) Sepsis Current Visit: No Status: Acute Qualifiers: Sepsis type: sepsis due to unspecified organism Severe sepsis acute organ dysfunction type: acute renal failure Severe sepsis shock status: unspecified (2) Pneumonia Current Visit: No Status: Acute Code(s): J18.9 - PNEUMONIA, UNSPECIFIED ORGANISM (3) Acute on chronic renal failure Current Visit: No Status: Acute Code(s): N17.9 - ACUTE KIDNEY FAILURE, UNSPECIFIED; N18.9 - CHRONIC KIDNEY DISEASE, UNSPECIFIED (4) Type II diabetes mellitus Current Visit: No Status: Chronic Qualifiers: Diabetes mellitus [facility] insulin use: without bed bug exterminator use Diabetes mellitus complication status: without complication Qualified Code(s): E11.9 - Type 2 diabetes mellitus without complications (5) Smoker Current Visit: No Status: Chronic Code(s): F17.200 - NICOTINE DEPENDENCE, UNSPECIFIED, UNCOMPLICATED (6) HTN (hypertension) Current Visit: No Status: Chronic Code(s): I10 - ESSENTIAL (PRIMARY) HYPERTENSION (7) Obesity (BMI 30-39.9) Current Visit: No Status: Chronic Code(s): E66.9 - OBESITY, UNSPECIFIED (8) Thrombocytosis Current Visit: Yes Status: Acute Assessment & Plan: 1) Sepsis Current Visit: No Status: Acute Qualifiers: Sepsis type: sepsis due to unspecified organism Severe sepsis acute organ dysfunction type: acute renal failure Severe sepsis shock status: unspecified Assessment & Plan: - 2:2 pneumonia - HR > 90, RR >20, WBC > 12, Lactic acid 2.4 @ 1440 - Repeat LA 1.0 at 1656- IVF boluses not required - NS @ 50ml/hr - BC x2 ordered - Sputum culture ordered - IV antibiotics, steroids, duonebs - CXR reviewed - CBC, CMP reviewed 12/08 - CBC, CMP reviewed - Will continue to follow BC x2 and Sputum culture OP (2) Pneumonia Current Visit: No Status: Acute Assessment & Plan: - CXR: Portable chest again demonstrates mild bilateral lower lung hazy interstitial alveolar opacities without consolidation/large effusion. Heart not enlarged. Bony thorax intact again with mild degenerative changes. - CBC, CMP reviewed - Started on ceftriaxone, azithromycin, steroids, duonebs in ER- continue - WBC 14.9 - Flu/COVID/RSV negative - RA 97% - Sputum culture pending - Tessalon for cough - BC x2 pending - LA elevated, + sepsis- see plan above 12/08 - WBC 10.0 - RT eval for home O2- qualified and CM set up - CBC, CMP reviewed - Will continue to follow BC x2 and Sputum culture OP - Will d/c with antibiotics, steroids, tessalon, and nebs.- orders sent in when ready for D/C - CM to order neb machine - Several bronchospasms today, Advair added - Tessalon changed to tussinex per request of nurse - Mucinex added. - Repeat CXR: Portable chest demonstrates slight worsening mild bibasilar interstitial alveolar opacities with new tiny right effusion. Remaining heart and upper lungs unremarkable - 2NC 96% Code(s): J18.9 - PNEUMONIA, UNSPECIFIED ORGANISM (3) Acute on chronic renal failure Current Visit: No Status: Acute Assessment & Plan: - Creat 1.33- last yr lab was 1.19 - NS @ 50ml/hr 12/08 - Creat 1.07- at baseline Code(s): N17.9 - ACUTE KIDNEY FAILURE, UNSPECIFIED; N18.9 - CHRONIC KIDNEY DISEASE, UNSPECIFIED (4) Type II diabetes mellitus Current Visit: No Status: Chronic Qualifiers: Diabetes mellitus [facility] insulin use: without [facility] use Diabetes mellitus complication status: without complication Qualified Code(s): E11.9 - Type 2 diabetes mellitus without complications Assessment & Plan: - Hold metformin - Start low dose s/s - Accuchecks AC/HS - A1C 6.40- controlled (5) Smoker Current Visit: No Status: Chronic Assessment & Plan: - Advised smoking cessation - Nicotine patch Code(s): F17.200 - NICOTINE DEPENDENCE, UNSPECIFIED, UNCOMPLICATED (6) HTN (hypertension) Current Visit: No Status: Chronic Assessment & Plan: - BP stable - Continue Lisinopril Code(s): I10 - ESSENTIAL (PRIMARY) HYPERTENSION (7) Obesity (BMI 30-39.9) Current Visit: No Status: Chronic Assessment & Plan: - Advised ADA diet and exercise control Code(s): E66.9 - OBESITY, UNSPECIFIED (8) Thrombocytosis Current Visit: Yes Status: Acute Assessment & Plan: - PLT 397- f/u OP with PCP - 2:2 pneumonia VTE:Heparin PPI: Protonix Next of KIN: [place] D/Ras plan: tomorrow Code status: Full Plan of care time > 50 minutes
[2024-12-08] MEDS: HUMALOG SQ PRN (16:44)
[2024-12-08] MEDS: Advair Hfa 115/21 Common canister IH SCH (18:34)
[2024-12-09 05:19] LABS: Hematocrit 33.8 % (34.1-44.9); Hemoglobin 10.5 g/dL (11.2-15.7); Mean Corpuscular Hemoglobin 24.1 pg (25.6-32.2); Mean Corpuscular Hgb Concent. 31.1 g/dL (32.2-35.5); Platelet Count 361 x10^3/uL (182-369); Red Blood Count 4.35 x10^6/uL (3.93-5.22); White Blood Count 18.3 x10^3/uL (3.98-10.04)
[2024-12-09 07:02] LABS: Calcium 8.5 mg/dL (8.4-10.2); Carbon Dioxide 22 mmol/L (22-30); Creatinine 1 0.86 mg/dL (0.52-1.04); EST GLOMERULAR FILTRATION RATE 70.0 ML/MIN; Glucose 152 mg/dL (74-106); Potassium 4.3 mmol/L (3.5-5.1); SGOT/AST 25 U/L (14-36); SGPT/ALT 15 U/L (0-35); Total Protein 6.3 g/dL (6.3-8.2)
[2024-12-09 11:43] VITALS: BP 124/60; PULSE 56; RESP 16; TEMP 98; O2SAT 96
--- NOTE | 2024-12-09 12:10 | PCM.DS ---
Discharge Summary Date of Admission: 12/07/24 16:33 Date of Discharge: 12/09/24 Admitting Physician: TREY ROD MD Primary Care Provider: FELIPA PAUL Allergies Allergies amoxicillin [Amoxicillin] Allergy (Verified 12/07/24 13:38) Hospital Summary - Hospital Course Hospital Course: is a 74-year-old female with a history of type 2 diabetes, hypertension, cataracts, panic disorder, bronchitis, and daily tobacco use who was admitted on 12/07/24 with a three-week history of productive cough with green/yellow sputum and associated wheezing. She denied fever, chills, chest pain, or anginal-type symptoms. On presentation, she was alert and oriented, with stable vital signs and oxygen saturation of 97% on room air. Examination revealed diffuse wheezing, and chest X-ray showed mild bilateral lower lung interstitial and alveolar opacities without consolidation or effusion. She was started on treatment for pneumonia. Over the course of hospitalization, she required intermittent oxygen support, qualified for home oxygen per respiratory therapy, and continued to experience a persistent cough with occasional bronchospasms. Tessalon was transitioned to Tussionex, and inhaled therapy was adjusted, though Advair was discontinued as the patient did not find it helpful. Repeat chest X-ray was obtained for ongoing symptoms. On 12/09/24, she reported feeling unchanged compared to the prior day but remained concerned about her persistent cough. The provider explained that she will continue receiving the same medications at home that she has been given in the hospital and that she may also use [id number] cough remedies if needed. Her WBC balta to 18.3, likely secondary to steroid therapy, while DIMITRIS resolved. She remained hemodynamically stable with oxygen saturations at 99% on 2 L NC, primarily needed at night, and was ambulating in her room without difficulty. At discharge, she was provided with a nebulizer and prescribed nebulized medications, with home oxygen arranged. Sputum and blood cultures remain pending and will be followed outpatient. She was discharged home with instructions to continue antibiotics, use prescribed inhaled therapies and nebulizer, maintain home oxygen as needed, and follow up with her primary care provider for monitoring and ongoing management. - Vitals & Intake/Output Vital Signs: Vital Signs Temperature 98 F 12/09/24 11:41 Pulse Rate 56 L 12/09/24 11:41 Respiratory Rate 16 12/09/24 11:41 Blood Pressure 124/60 12/09/24 11:41 O2 Sat by Pulse Oximetry 96 12/09/24 11:41 Intake & Output: Intake & Output 12/07/24 12/08/24 12/09/24 12/10/24 11:59 11:59 11:59 11:59 Intake Total 2192 2180 Output Total 150 950 Balance 2042 1230 Weight 89.5 kg - Lab Result Diagrams: 12/09/24 04:20 12/09/24 05:00 Lab Results-Last 24 Hrs: Lab Results-Last 24 Hours 12/08/24 12/08/24 12/08/24 Range/Units 12:10 16:17 22:34 WBC (3.98-10.04) x10^3/uL RBC (3.93-5.22) x10^6/uL Hgb (11.2-15.7) g/dL Hct (34.1-44.9) % MCV (79.4-94.8) fL MCH (25.6-32.2) pg MCHC (32.2-35.5) g/dL RDW (11.7-14.4) % Plt Count (182-369) x10^3/uL MPV (9.4-12.3) fL Sodium (135-145) mmol/L Potassium (3.5-5.1) mmol/L Chloride (98-107) mmol/L Carbon Dioxide (22-30) mmol/L Anion Gap (5-15) MEQ/L BUN (7-17) mg/dL Creatinine (0.52-1.04) mg/dL Estimated GFR ML/MIN Glucose (74-106) mg/dL POC Glucometer 256 H 417 H 252 H (74 to 106) mg/dL Calcium (8.4-10.2) mg/dL Total Bilirubin (0.2-1.3) mg/dL AST (14-36) U/L ALT (0-35) U/L Alkaline Phosphatase (38-126) U/L Serum Total Protein (6.3-8.2) g/dL Albumin (3.5-5.0) g/dL 12/09/24 12/09/24 12/09/24 Range/Units 04:20 05:00 07:18 WBC 18.3 H (3.98-10.04) x10^3/uL RBC 4.35 (3.93-5.22) x10^6/uL Hgb 10.5 L (11.2-15.7) g/dL Hct 33.8 L (34.1-44.9) % MCV 77.7 L (79.4-94.8) fL MCH 24.1 L (25.6-32.2) pg MCHC 31.1 L (32.2-35.5) g/dL RDW 17.3 H (11.7-14.4) % Plt Count 361 (182-369) x10^3/uL MPV 9.2 L (9.4-12.3) fL Sodium 138 (135-145) mmol/L Potassium 4.3 (3.5-5.1) mmol/L Chloride 106 (98-107) mmol/L Carbon Dioxide 22 (22-30) mmol/L Anion Gap 14.1 (5-15) MEQ/L BUN 28 H (7-17) mg/dL Creatinine 0.86 (0.52-1.04) mg/dL Estimated GFR 70.0 ML/MIN Glucose 152 H (74-106) mg/dL POC Glucometer 165 H (74 to 106) mg/dL Calcium 8.5 (8.4-10.2) mg/dL Total Bilirubin < 0.10 L (0.2-1.3) mg/dL AST 25 (14-36) U/L ALT 15 (0-35) U/L Alkaline Phosphatase 86 (38-126) U/L Serum Total Protein 6.3 (6.3-8.2) g/dL Albumin 3.3 L (3.5-5.0) g/dL 12/09/24 Range/Units 11:14 WBC (3.98-10.04) x10^3/uL RBC (3.93-5.22) x10^6/uL Hgb (11.2-15.7) g/dL Hct (34.1-44.9) % MCV (79.4-94.8) fL MCH (25.6-32.2) pg MCHC (32.2-35.5) g/dL RDW (11.7-14.4) % Plt Count (182-369) x10^3/uL MPV (9.4-12.3) fL Sodium (135-145) mmol/L Potassium (3.5-5.1) mmol/L Chloride (98-107) mmol/L Carbon Dioxide (22-30) mmol/L Anion Gap (5-15) MEQ/L BUN (7-17) mg/dL Creatinine (0.52-1.04) mg/dL Estimated GFR ML/MIN Glucose (74-106) mg/dL POC Glucometer 146 H (74 to 106) mg/dL Calcium (8.4-10.2) mg/dL Total Bilirubin (0.2-1.3) mg/dL AST (14-36) U/L ALT (0-35) U/L Alkaline Phosphatase (38-126) U/L Serum Total Protein (6.3-8.2) g/dL Albumin (3.5-5.0) g/dL Micro Results-Entire Visit: Microbiology 12/07/24 17:58 Blood Culture - Preliminary Blood 12/07/24 17:52 Blood Culture - Preliminary Blood 12/08/24 05:40 Gram Stain - Final Sputum - Expectorant Accuchecks Date 12/09/24 Date 12/09/24 Time 11:41 Time 07:29 - Radiology Exams Ordered Rad Exams-Entire Visit: Radiology Procedures Category Date Time Status CHEST 1 VIEW (PORTABLE) Stat Exams 12/07/24 14:33 Completed CHEST 1 VIEW (PORTABLE) Urgent Exams 12/08/24 14:42 Completed - Procedures and Test Procedures and Tests throughout Hospitalization: Therapy Orders & Screens 12/07/24 14:34 Respiratory Therapy Assessment DAILY Comment: 12/07/24 16:54 Respiratory Therapy Assessment DAILY Comment: Diagnosis: PNA; COPD 12/07/24 17:07 Smoking Cessation Education ONCE Comment: Diagnosis: PNA; COPD Smoking Status: Current every day smoker How long have you smoked: 46 years Have you smoked in the past 12 months: Yes Approximately how many cigarettes per day: 10 Do you dip or chew tobacco: No 12/07/24 19:00 Oxygen Nasal Cannula 2 lpm Comment: Diagnosis: PNA; COPD 12/08/24 09:12 RT Miscellaneous Order ROUTINE Comment: Physician Instructions: Reason For Exam: eval for home O2 Diagnosis: PNA; COPD 12/08/24 14:38 Respiratory MDI BID Comment: Diagnosis: PNA; COPD 12/08/24 18:37 Flutter Therapy UD Comment: Diagnosis: PNA; COPD Discharge Exam General Appearance: no apparent distress, alert, obese Neurologic Exam: alert, oriented x 3, cooperative, normal mood/affect, nml cerebellar function, sensation nml, No motor deficits Eye Exam: PERRL, EOMI, eyes nml inspection Ears, Nose, Throat Exam: normal ENT inspection, pharynx normal, moist mucous membranes Neck Exam: normal inspection, non-tender, supple, full range of motion Respiratory Exam: wheezing, No respiratory distress Cardiovascular Exam: regular rate/rhythm, normal heart sounds Gastrointestinal/Abdomen Exam: soft, No tenderness, No mass Pelvic Exam: deferred Rectal Exam: deferred Back Exam: normal inspection, normal range of motion, No CVA tenderness, No vertebral tenderness Extremity Exam: normal inspection, normal range of motion Skin Exam: normal color, warm, dry Final Diagnosis/Problem List - Final Discharge Diagnosis/Problem (1) Sepsis Current Visit: No Status: Acute (2) Pneumonia Current Visit: No Status: Acute Code(s): J18.9 - PNEUMONIA, UNSPECIFIED ORGANISM (3) Acute on chronic renal failure Current Visit: No Status: Acute Code(s): N17.9 - ACUTE KIDNEY FAILURE, UNSPECIFIED; N18.9 - CHRONIC KIDNEY DISEASE, UNSPECIFIED (4) Type II diabetes mellitus Current Visit: No Status: Chronic (5) Smoker Current Visit: No Status: Chronic Code(s): F17.200 - NICOTINE DEPENDENCE, UNSPECIFIED, UNCOMPLICATED (6) HTN (hypertension) Current Visit: No Status: Chronic Code(s): I10 - ESSENTIAL (PRIMARY) HYPERTENSION (7) Obesity (BMI 30-39.9) Current Visit: No Status: Chronic Code(s): E66.9 - OBESITY, UNSPECIFIED (8) Thrombocytosis Current Visit: Yes Status: Acute Assessment & Plan: 1) Sepsis Current Visit: No Status: Acute Qualifiers: Sepsis type: sepsis due to unspecified organism Severe sepsis acute organ dysfunction type: acute renal failure Severe sepsis shock status: unspecified Assessment & Plan: - 2:2 pneumonia - HR > 90, RR >20, WBC > 12, Lactic acid 2.4 @ 1440 - Repeat LA 1.0 at 1656- IVF boluses not required - NS @ 50ml/hr - BC x2 ordered - Sputum culture ordered - IV antibiotics, steroids, duonebs - CXR reviewed - CBC, CMP reviewed 12/08 - CBC, CMP reviewed - Will continue to follow BC x2 and Sputum culture OP (2) Pneumonia Current Visit: No Status: Acute Assessment & Plan: - CXR: Portable chest again demonstrates mild bilateral lower lung hazy interstitial alveolar opacities without consolidation/large effusion. Heart not enlarged. Bony thorax intact again with mild degenerative changes. - CBC, CMP reviewed - Started on ceftriaxone, azithromycin, steroids, duonebs in ER- continue - WBC 14.9 - Flu/COVID/RSV negative - RA 97% - Sputum culture pending - Tessalon for cough - BC x2 pending - LA elevated, + sepsis- see plan above 12/08 - WBC 10.0 - RT eval for home O2- qualified and CM set up - CBC, CMP reviewed - Will continue to follow BC x2 and Sputum culture OP - Will d/c with antibiotics, steroids, tessalon, and nebs.- orders sent in when ready for D/C - CM to order neb machine - Several bronchospasms today, Advair added - Tessalon changed to tussinex per request of nurse - Mucinex added. - Repeat CXR: Portable chest demonstrates slight worsening mild bibasilar interstitial alveolar opacities with new tiny right effusion. Remaining heart and upper lungs unremarkable - 2NC 96% 12/09 - 2lNC 99% - CBC, CMP reviewed - WBC 18.3, likely 2:2 steroids - Continue OP antibiotics, steroids, duonebs, tessalon Code(s): J18.9 - PNEUMONIA, UNSPECIFIED ORGANISM (3) Acute on chronic renal failure Current Visit: No Status: Acute Assessment & Plan: - Creat 1.33- last yr lab was 1.19 - NS @ 50ml/hr 12/08 - Creat 1.07- at baseline 12/09 - resolved Code(s): N17.9 - ACUTE KIDNEY FAILURE, UNSPECIFIED; N18.9 - CHRONIC KIDNEY DISEASE, UNSPECIFIED (4) Type II diabetes mellitus Current Visit: No Status: Chronic Qualifiers: Diabetes mellitus mcc insulin use: without terminal system operator use Diabetes mellitus complication status: without complication Qualified Code(s): E11.9 - Type 2 diabetes mellitus without complications Assessment & Plan: - Hold metformin - Start low dose s/s - Accuchecks AC/HS - A1C 6.40- controlled (5) Smoker Current Visit: No Status: Chronic Assessment & Plan: - Advised smoking cessation - Nicotine patch 12/09 - Advised not to smoke with oxygen Code(s): F17.200 - NICOTINE DEPENDENCE, UNSPECIFIED, UNCOMPLICATED (6) HTN (hypertension) Current Visit: No Status: Chronic Assessment & Plan: - BP stable - Continue Lisinopril Code(s): I10 - ESSENTIAL (PRIMARY) HYPERTENSION (7) Obesity (BMI 30-39.9) Current Visit: No Status: Chronic Assessment & Plan: - Advised ADA diet and exercise control Code(s): E66.9 - OBESITY, UNSPECIFIED (8) Thrombocytosis Current Visit: Yes Status: Acute Assessment & Plan: - PLT 397- f/u OP with PCP - 2:2 pneumonia D/C plan of care time > 45 minutes D/C meds: antibiotics, steroids, duonebs, tessalon - Discharge Disposition: Home, Self-Care Condition: Stable Prescriptions: New Benzonatate 100 mg PO TIDPRN PRN 10 Days #30 cap PRN Reason: Cough Prednisone 20 mg [Deltasone 20 mg] 20 mg PO BID 5 Days #10 tablet levoFLOXacin [Levofloxacin] 750 mg PO DAILY 5 Days #5 tablet Albuterol/Ipratropium 3ml Neb* [DUONEB 0.5-3 MG/3 ml Neb] 3 ml IH QIDPRN PRN 10 Days #40 misc PRN Reason: Shortness Of Breath/Wheezing Albuterol Sulfate [Albuterol Sulfate Hfa] 8.5 gm IH Q6HPRN PRN 30 Days #1 inh PRN Reason: Cough Continue Metformin HCl 500 mg [Glucophage 500 MG] 500 mg PO BID #60 tablet lisinopriL [Zestril] 2.5 mg PO DAILY Instructions: Pneumonia in adults, Oxygen therapy at home, Quitting smoking - ED discharge instructions Additional Instructions: WEAR 2L/NC AT ALL TIMES, CALL [facility] AT [phone] WHEN YOU LEAVE [facility] SO THEY CAN MEET YOU AT YOUR HOME TO DELIVER YOUR HOME CONCENTRATOR. NEBULIZER MACHINE HAS BEEN SENT TO [facility]- THEY WILL DELIVER THIS TO YOUR HOME. IF NEEDED, YOU CAN FOLLOW UP WITH THEM AT [phone] Follow up with: SHOAIB GOMEZ MD [ACTIVE STAFF, FAMILY PRACTICE] - 12/15/24 11:00 am Referral Note: Dr Paul out of office all week, appt with Dr Gomez
== END 2024-12-09 13:52 | disposition home or self-care (01) ==
LOC: ED 13:19 → INTOOBSV 16:33 → OBSVTOIN 16:33 → MED SURG 16:33
PROVIDERS: ADMIT Internal Medicine; ATTEND Internal Medicine
DX: A41.9 Sepsis, unspecified organism (principal); J18.9 Pneumonia, unspecified organism; E11.22 Type 2 diabetes mellitus with diabetic chronic kidney disease; I12.9 Hypertensive chronic kidney disease with stage 1 through stage 4 chronic kidney disease, or unspecified chronic kidney disease; N17.9 Acute kidney failure, unspecified; N18.9 Chronic kidney disease, unspecified; E11.9 Type 2 diabetes mellitus without complications; F17.200 Nicotine dependence, unspecified, uncomplicated; E66.9 Obesity, unspecified; D75.839 Thrombocytosis, unspecified; Z79.899 Other long term (current) drug therapy
CPT/HCPCS: 36415; 71045; 80053; 82947; 83036; 83605; 83880; 84484; 85025; 85027; 87040; 87070; 87637; 93041; 94640; 94667; 94668; 94760; 96374; 99285; G0378; Q3014